=== PATIENT | female | born 1970 | race African-American/Black ===

== ENCOUNTER 2021-06-10 07:26 | Emergency (ER) | payer SELFPAY ==
[~2021-06-10] VITALS: Ht 170.2 cm; Wt 93.0 kg
== END 2021-06-10 10:04 | disposition home or self-care (01) ==
LOC: ER 07:45
DX: R05 Cough (principal); J18.9 Pneumonia, unspecified organism; E78.5 Hyperlipidemia, unspecified; Z87.891 Personal history of nicotine dependence
CPT/HCPCS: 71045; 99283; U0002